=== PATIENT | female | born 1970 | race Caucasian/White ===

== ENCOUNTER 2023-06-27 00:49 | Day surgery (SDC) | payer SELFPAY ==
[2023-06-27] MEDS: Sodium Chloride 0.9% 1,000 ML IV ONE (02:37)
[2023-06-27] MEDS: Ondansetron 4 MG/2 ML SDV IVPUSH ONE (02:37)
[2023-06-27 02:42] LABS: BASOPHILS ABSOLUTE AUTO 0.1 K/mm3 (0.0-0.2); BASOPHILS PERCENT AUTO 0.2 % (0.0-1.0); HEMATOCRIT 42.8 % (37.0-47.0); HEMOGLOBIN 14.3 gm/dl (12.0-16.0); IMMATURE GRAN ABSOLUTE AUTO 0.14 K/mm3 (0.00-0.05); IMMATURE GRAN PERCENT AUTO 0.6 % (0.0-0.4); LYMPHOCYTES ABSOLUTE AUTO 1.2 K/mm3 (1.0-4.8); LYMPHOCYTES PERCENT AUTO 5.3 % (24.0-44.0); MEAN CORPUSCULAR HEMOGLOBIN 28.3 pg (28.0-32.0); MEAN CORPUSCULAR HGB CONC 33.4 g/dl (32.0-36.0); MEAN CORPUSCULAR VOLUME 84.6 fl (83.0-99.0); MEAN PLATELET VOLUME 8.5 fl (9.4-12.3); MONOCYTES ABSOLUTE AUTO 1.4 K/mm3 (0.0-0.8); NEUTROPHILS ABSOLUTE AUTO 19.9 K/mm3 (1.8-7.7); NEUTROPHILS PERCENT AUTO 87.9 % (41.0-71.0); PLATELET COUNT,PLT 228 K/mm3 (150-400); RED BLOOD CELL COUNT 5.06 M/mm3 (4.10-5.30); WHITE BLOOD CELL COUNT,WBC 22.67 K/mm3 (3.9-11.3)
[2023-06-27] MEDS: Famotidine 20 MG/2 ML SDV IVPUSH ONE (02:51)
[2023-06-27] MEDS: Aluminum Hydroxide/Magnesium Hydroxide/Simethicone Susp 30 ML Cup PO ONE (02:51)
[2023-06-27 03:05] LABS: APPEARANCE,URINE CLEAR (Clear); BILIRUBIN,URINE NEGATIVE (Negative); COLOR,URINE YELLOW (Yellow); GLUCOSE,URINE NEGATIVE (Negative); KETONES,URINE NEGATIVE (Negative); LEUKOCYTE ESTERASE,URINE TRACE (Negative); NITRITE,URINE NEGATIVE (Negative); OCCULT BLOOD,URINE TRACE-INTACT (Negative); PH,URINE 7.5 (5.0-8.0); PROTEIN,URINE 1+ (Negative); UROBILINOGEN,URINE 0.2 (0.2-1.0)
[2023-06-27 03:20] LABS: BACTERIA,URINE MODERATE /hpf (FEW); EPITHELIAL CELLS,URINE 0-5 /hpf (0-5); MUCUS,URINE NOT SEEN /hpf (FEW); RBC,URINE 0-5 /hpf (0-5)
[2023-06-27 03:54] LABS: A/G RATIO 1.1 (1-2); ALBUMIN 3.8 g/dl (3.4-5.0); ANION GAP 16.6 (5-15); BILIRUBIN TOTAL 0.7 mg/dL (0.2-1.0); CALCIUM 9.1 mg/dL (8.5-10.1); CREATININE 1.1 mg/dL (0.55-1.02); EST CRCL DRUG DOSING (CG) 47.32 mL/min; POTASSIUM,K 3.6 mEq/L (3.5-5.1); PROTEIN TOTAL,TP 7.3 g/dl (6.4-8.2)
[2023-06-27] MEDS: cefTRIAXone 1 GM in Sodium Chloride 0.9% 100 ML IV ONE (04:09)
[2023-06-27] MEDS: Iopamidol 612 MG/ML 100 ML Bottle IVPUSH ONE (04:42)
[2023-06-27] MEDS: Morphine 4 MG/ML Syringe IVPUSH ONE (04:49)
[2023-06-27] MEDS: metroNIDAZOLE/Normal Saline 500 MG in Premix Bag 1 BAG IV ONE (05:02)
[2023-06-27 05:09] LABS: INR 0.95; PROTHROMBIN TIME 10.2 SECONDS (9.7-12.0)
[2023-06-27 05:10] LABS: PTT,PARTIAL THROMBOPLSTIN TIME 29.6 SECONDS (21.7-31.4)
[2023-06-27] MEDS ORDERED: Rocuronium 50 MG/5 ML Vial ONE (06:24)
[2023-06-27] MEDS ORDERED: Midazolam 1 MG/ML 2 ML SDV ONE (06:24)
[2023-06-27] MEDS ORDERED: fentaNYL 250 MCG/5 ML SDV ONE (06:24)
[2023-06-27] MEDS ORDERED: Propofol 200 MG/20 ML SDV ONE (06:24)
[2023-06-27] MEDS ORDERED: Dexamethasone 4 MG/ML 5 ML MDV ONE (06:27)
[2023-06-27] MEDS ORDERED: Lidocaine 1% 4 ML ONE (06:27)
[2023-06-27] MEDS ORDERED: Ondansetron 4 MG/2 ML SDV ONE (06:27)
[2023-06-27] MEDS ORDERED: Phenylephrine 1% 10 MG/ML SDV ONE (07:00)
[2023-06-27] MEDS ORDERED: Lactated Ringers 1,000 ML ONE ×2 (07:11)
[2023-06-27] MEDS ORDERED: Sugammadex Sodium 200 MG/2 ML VIAL IV ONE (07:38)
[2023-06-27] MEDS: EPINEPHrine 1 MG/ML SDV ONE (08:13)
[2023-06-27] MEDS: Bupivacaine 0.5% 30 ML SDV ONE (08:13)
[2023-06-27] MEDS ORDERED: fentaNYL 100 MCG/2 ML SDV IVPUSH PRN (08:23)
[2023-06-27] MEDS ORDERED: HYDROmorphone 0.5 MG/0.5 ML Syringe IVPUSH PRN (08:23)
[2023-06-27] MEDS ORDERED: Ondansetron 4 MG/2 ML SDV IVPUSH PRN (08:23)
== END 2023-06-27 11:39 | disposition home or self-care (01) ==
LOC: JD.ED 00:49 → JD.SDS 07:30
PROVIDERS: ATTEND Surgery
DX: K35.33 Acute appendicitis with perforation, localized peritonitis, and gangrene, with abscess (principal)
CPT/HCPCS: 36415; 44970; 74177; 80053; 81001; 81003; 83690; 84703; 85025; 85610; 85730; 86850; 86900; 86901; 87086; 87088; 87186; 88304; 93005; 96361; 96365; 96375; 99285; A9270; J0171; J0665; J0696; J1100; J1836; J2250; J2270; J2371; J2405; J2704; J3010; J3490; J7030; J7120; Q9967; 00840; 93010; 99140